=== PATIENT | female | born 1985 | race Caucasian/White ===

== ENCOUNTER 2021-06-18 18:26 | Emergency (ER) | payer BC, SELFPAY ==
[2021-06-18 18:30] VITALS: BP 127/88; PULSE 89; RESP 14; TEMP 36.2; O2SAT 99
--- NOTE | 2021-06-18 20:29 | ED.GENADULT ---
HPI - General Adult General Chief complaint: Unspecified Stated complaint: SINUS PRESSURE AND WOUND ON BUTTOCKS Time Seen by Provider: 06/18/21 20:10 Source: patient Mode of arrival: ambulatory Limitations: no limitations History of Present Illness HPI narrative: This is a 36 year old female that presents to the ER for a wound on her buttock noted over the last couple of days. Reports last night the area started draining. Also reports that she has had sinus pain and pressure over the last week. Associated with congestion and cough. She is Covid vaccinated. Denies fevers. Review of Systems Review of Systems: CONSTITUTIONAL: Denies fever ENT: Reports rhinorrhea, congestion RESPIRATORY: Reports cough. Denies dyspnea. SKIN: Reports abscess All systems reviewed & are unremarkable except as noted in HPI and below PMFSH Past Medical History Medical History (Updated 06/18/21 @ 21:55 by Selma Rodriguez PA-C) History of gastroesophageal reflux (GERD) Social History Social History (Updated 06/18/21 @ 20:32 by Selma Rodriguez PA-C) Smoking status: Never smoker Exam Narrative: GENERAL: Well-appearing, obese, and in no acute distress. HEAD: Normocephalic, atraumatic. EYES: EOMI. ENT: Nares clear, no rhinorrhea or epistaxis. Mucous membranes moist. Oropharynx without tonsillar hypertrophy exudate or other lesions. Bilateral TMs pearly nunez non-bulging. Maxillary sinus tenderness NECK: Supple. No adenopathy or masses. CHEST: Clear to auscultation. No respiratory distress. No wheezes rales or rhonchi HEART: Regular rate and rhythm. No murmur heard. Normal peripheral pulses. BACK: 3cm area of erythema and edema with central fluctuance. Pus is expressible EXTREMITIES: Normal range of motion. No edema. SKIN: Warm, dry, no rash. NEURO: No focal deficits. Alert and oriented x3. PSYCH: Normal mood and affect Course Vital Signs Vital signs: Vital Signs Temperature 97.1 F L 06/18/21 18:30 Pulse Rate 89 06/18/21 18:30 Respiratory Rate 14 06/18/21 18:30 Blood Pressure 127/88 06/18/21 18:30 Pulse Oximetry 99 06/18/21 18:30 Temperature 97.1 F L 06/18/21 18:30 Pulse Rate 89 06/18/21 18:30 Respiratory Rate 14 06/18/21 18:30 Blood Pressure 127/88 06/18/21 18:30 Pulse Oximetry 99 06/18/21 18:30 Procedures Abscess I/D other: Date of Incision: 06/18/21 Time of Incision: 21:44 Local Anesthetic: lidocaine 1% and with epi Amount of anesthesia used (mL): 3 Technique: incised with #11 blade Irrigation: Yes Packing used?: iodoform I&D Results: Pus and Blood Abcess I&D Additional Comments: Pilonidal abscess drained Medical Decision Making MDM Narrative Medical decision making narrative: Patient presents to the ER for pilonidal abscess. She is afebrile and nontoxic appearing. Abscess was drained by myself. Patient will be started on oral antibiotics. Patient also complaining of sinus congestion and pain. Lungs are clear on exam. She was instructed on continued care of sinusitis. She is to follow up with her PCP. She was given warnings to return to the ER. Vital Signs Vital Signs: Vital Signs Temperature 97.1 F L 06/18/21 18:30 Pulse Rate 89 06/18/21 18:30 Respiratory Rate 14 06/18/21 18:30 Blood Pressure 127/88 06/18/21 18:30 Pulse Oximetry 99 06/18/21 18:30 Temperature 97.1 F L 06/18/21 18:30 Pulse Rate 89 06/18/21 18:30 Respiratory Rate 14 06/18/21 18:30 Blood Pressure 127/88 06/18/21 18:30 Pulse Oximetry 99 06/18/21 18:30 Critical Care Time Critical Care Time Critical Care Time: No Discharge Plan Discharge Clinical Impression: Pilonidal abscess Sinusitis Qualifiers: Sinusitis location: maxillary Chronicity: acute Recurrence: non-recurrent Qualified Code(s): J01.00 - Acute maxillary sinusitis, unspecified Patient Disposition: Home, Self-Care Condition: Stable Instructions: Antibiot
[2021-06-18] MEDS: metroNIDAZOLE 250 MG TABLET 500 MG PO (22:25)
[2021-06-18] MEDS: CEPHALEXIN 500 MG CAPSULE PO (22:25)
[2021-06-18 22:30] VITALS: BP 120/84; PULSE 82; RESP 16; O2SAT 99
== END 2021-06-18 22:30 | disposition home or self-care (01) ==
PROVIDERS: Emergency Provider Emergency Medicine; PCP Family Medicine
DX: L05.01 Pilonidal cyst with abscess (principal); J01.00 Acute maxillary sinusitis, unspecified; K21.9 Gastro-esophageal reflux disease without esophagitis
CPT/HCPCS: 10061; 10080; 87070; 87077; 87205; 99283; A9270

== ENCOUNTER 2021-11-01 00:13 | Emergency (ER) | payer BC, SELFPAY ==
--- NOTE | ~2021-11-01 | XR_ITS ---
EXAMINATION: XR wrist LT min 3V DATE: 11/01/2021 00:55 INDICATION: Left wrist pain. TECHNIQUE: 4 views of left wrist were obtained. COMPARISON: None. FINDINGS: Bone alignment is normal. No fracture. Joint spaces are well maintained. IMPRESSION: 1. Normal left wrist. Reviewed, dictated and finalized at location A. CAL COORDINATOR PESTICIDE USE IMPRESSION: 1. Normal left wrist.
[2021-11-01 00:18] VITALS: BP 133/87; PULSE 100; RESP 20; TEMP 36.7; O2SAT 100
[2021-11-01 00:28] VITALS: O2SAT 99
[2021-11-01] MEDS: SODIUM CHLORIDE 0.9% IV 1,000 ML 999 ML IV CONT (00:45)
[2021-11-01 01:00] VITALS: BP 131/77; PULSE 77; RESP 20; O2SAT 100
[2021-11-01] MEDS: BENZOCAINE/MENTHOL (*BKC) 18 EA LOZENGE 1 LOZENGE PO (01:48)
--- NOTE | 2021-11-01 01:50 | ED.GENADULT ---
HPI - General Adult General Chief complaint: Upper Respiratory Infection Stated complaint: URI x5 days, L wrist pain Time Seen by Provider: 11/01/21 00:21 History of Present Illness HPI narrative: Patient is a 36-year-old female who presents ER with issues with URI and wrist pain. Patient reports she was diagnosed with COVID last month and recovered. After her recovery she had redevelopment of sinus congestion. Ongoing last 5 days. No improvement with Mucinex DM. She took a Sudafed this evening. Denies fevers or chills or sweats. Endorses sore throat. No productive cough. No dyspnea. She also reports that she has had wrist pain over the last week. She thinks she may have fell and injured her wrist but cannot remember. She has been wearing wrist splints at home but when she takes it off she has pain. Has not been taking pain medication. No numbness or tingling. Pain is over the dorsal aspect of the middle of the wrist. Related Data Allergies Allergy/AdvReac Type Severity Reaction Status Date / Time Sulfa (Sulfonamide Allergy Rash Verified 06/18/21 22:25 Antibiotics) Review of Systems Review of Systems: All systems reviewed & are unremarkable except as noted in HPI and below Constitutional: Constitutional: Denies chills, Denies fever(s) and Denies weakness ENT: Reports nasal congestion and Reports sore throat Cardiovascular: Cardiovascular: Denies chest pain, Denies rapid heart rate and Denies radiating jaw, neck or arm pain Respiratory: Respiratory: Reports cough, Denies dyspnea and Denies wheezing Musculoskeletal: Musculoskeletal: Reports arthralgias and Denies joint swelling Neurologic: Denies focal weakness and Denies numbness PMFSH Past Medical History Medical History (Updated 11/01/21 @ 02:27 by Ciro Davenport MD) History of gastroesophageal reflux (GERD) Surgical History Surgical History (Updated 11/01/21 @ 02:27 by Ciro Davenport MD) No pertinent past surgical history Social History Social History (Updated 06/18/21 @ 20:32 by Selma Rodriguez PA-C) Smoking status: Never smoker Exam Narrative: GENERAL: Well-appearing, well-nourished, and in no acute distress. HEAD: Normocephalic, atraumatic. ENT: Mucous membranes moist. No tonsillar hypertrophy or exudate. Uvula midline nonedematous. Normal-appearing posterior oropharynx NECK: Supple. CHEST: Clear to auscultation. No respiratory distress. HEART: Regular rate and rhythm. Normal peripheral pulses EXTREMITIES: Normal range of motion. No edema. Mild tenderness dorsum of the left wrist without swelling or redness. Sensation intact in the left hand. NEURO: No focal deficits. Alert and oriented x3. Course Course Emergency Course: Patient hydrated as she felt she was dry from feeling unwell. Imaging without evidence of acute fracture. Discharge home. Vital Signs Vital signs: Vital Signs Temperature 98.0 F 11/01/21 00:18 Pulse Rate 100 11/01/21 00:18 Respiratory Rate 20 11/01/21 00:18 Blood Pressure 133/87 11/01/21 00:18 Pulse Oximetry 100 11/01/21 00:18 Temperature 98.0 F 11/01/21 00:18 Pulse Rate 77 11/01/21 01:00 Respiratory Rate 20 11/01/21 01:00 Blood Pressure 131/77 11/01/21 01:00 Pulse Oximetry 100 11/01/21 01:00 Medical Decision Making Vital Signs Vital Signs: Vital Signs Temperature 98.0 F 11/01/21 00:18 Pulse Rate 100 11/01/21 00:18 Respiratory Rate 20 11/01/21 00:18 Blood Pressure 133/87 11/01/21 00:18 Pulse Oximetry 100 11/01/21 00:18 Temperature 98.0 F 11/01/21 00:18 Pulse Rate 77 11/01/21 01:00 Respiratory Rate 20 11/01/21 01:00 Blood Pressure 131/77 11/01/21 01:00 Pulse Oximetry 100 11/01/21 01:00 Imaging Data My impression: X-ray left wrist: No acute osseous abnormality. Discharge Plan Discharge Clinical Impression: Upper respiratory infection, Pain in wrist Patient Disposition: Home, Self-Care Conditio
== END 2021-11-01 02:20 | disposition home or self-care (01) ==
PROVIDERS: Emergency Provider Emergency Medicine; PCP Family Medicine
DX: J06.9 Acute upper respiratory infection, unspecified (principal); M25.532 Pain in left wrist; Z86.16 Personal history of COVID-19; K21.9 Gastro-esophageal reflux disease without esophagitis
CPT/HCPCS: 73110; 96360; 99283; A9270; J7030

== ENCOUNTER 2022-11-09 00:03 | Emergency (ER) | payer BC, SELFPAY ==
--- NOTE | ~2022-11-09 | CT_ITS ---
Non-contrast CT scan of the Abdomen and Pelvis Clinical indication: Flank pain Technique: 5 mm axial scans were obtained through the abdomen and pelvis without intravenous or oral contrast. Dose reduction technique was used on this scan by utilizing automated exposure control and iterative reconstruction technique. The dose-length product (DLP) was 1340.66 mGy-cm. Findings: Images through the lung bases reveal no abnormalities. Punctate nonobstructing bilateral renal stones are present. No ureteral stone or hydronephrosis. The liver, spleen, pancreas, gallbladder, and adrenals appear normal. There is no aortic aneurysm. There is no evidence of bowel obstruction. Normal appendix. Images through the pelvis were performed. There is no evidence of ascites or lymphadenopathy. Urinary bladder unremarkable. No adnexal mass evident. Impression: Punctate bilateral nonobstructing renal stones. No other significant findings. Reviewed, dictated and finalized at [facility]. TABLE TESTER Impression: Punctate bilateral nonobstructing renal stones. No other significant findings.
[2022-11-09 00:09] VITALS: BP 136/88; PULSE 96; RESP 14; TEMP 37.1; O2SAT 98
[2022-11-09 00:38] VITALS: BP 119/82; PULSE 89; O2SAT 98
[2022-11-09 00:49] LABS: Basophils Percent Auto 0.2 % (0.2-1.2); Eosinophils Absolute Auto 0.5 K/mm3 (0-0.3); Eosinophils Percent Auto 5.8 % (0-4.4); Hematocrit 41.8 % (37.0-47.0); Hemoglobin 13.5 g/dL (12.0-15.0); Immature Granulocyte Absolute 0.03 K/mm3 (0.00-0.031); Immature Granulocyte Percent A 0.4 % (0-0.5); Lymphocytes Absolute Auto 2.63 K/mm3 (0.9-3.2); Lymphocytes Percent Auto 31.2 % (18.3-44.2); Mean Corpuscular HGB Conc 32.3 g/dl (32-36); Mean Corpuscular Hemoglobin 29.3 pg (26-34); Mean Corpuscular Volume 90.9 fl (80-100); Mean Platelet Volume 10.1 fl (7.4-10.4); Monocytes Absolute Auto 0.6 K/mm3 (0.1-0.6); Monocytes Percent Auto 6.8 % (2.6-8.5); Neutrophils Absolute Auto 4.7 K/mm3 (1.3-6.7); Neutrophils Percent Auto 55.6 % (45.5-73.1); Platelet Count Result 277 k/mm3 (150-375); Red Cell Distribution Width 13.3 % (11.5-14.5); White Blood Count 8.4 K/mm3 (4.5-10.0)
--- NOTE | 2022-11-09 00:50 | PC.NURSE ---
Pt reports suprapubic and low back pain that started 3 days ago. +Nausea and diarrhea. Denies vomiting or blood in her stools. She also denies pain or burning with urination. Abdomen is soft. Bowel sounds heard throughout. Last BM was yesterday and normal per pt.
[2022-11-09 00:52] LABS: Appearance Urine Slightly Cloudy (Clear); Bilirubin Urine Negative (Negative); Blood Urine Negative (Negative); Color Urine Yellow (Yellow); Glucose Urine UA Negative (Negative); Ketones Urine Trace mg/dL (Negative); Leukocyte Esterase Ur Trace LEU/UL (Negative); Nitrate Urine Negative (Negative); Protein Urine Negative (Negative); Specific Grav Ur >= 1.030 (1.001-1.035); Urobilinogen Urine 0.2 mg/dL (<2.0); pH Urine 5.5 (5.0-9.0)
[2022-11-09 01:00] LABS: Alanine Aminotransferase 26 U/L (6-35); Albumin Level 4.1 g/dL (3.5-5.1); Alkaline Phosphatase 103 U/L (38-126); Anion Gap 7 mmol/L (8-16); Aspartate Amino Transferase 26 U/L (14-36); Bilirubin,Total 0.3 mg/dL (0.2-1.3); Blood Urea Nitrogen 15 mg/dL (7-17); Calcium 8.5 mg/dL (8.4-10.2); Carbon Dioxide 25 mmol/L (22-30); Chloride 108 mmol/L (98-107); Estimated CRCL calculation 114 ml/min; Estimated Glomerular Filt Rate > 60; Glucose 163 mg/dL (65-110); Lipase 23 U/L (23-300); Potassium 4.1 mmol/L (3.4-5.0); Sodium 140 mmol/L (137-145)
[2022-11-09 01:00] LABS: Bacteria Urine Trace /hpf; Mucus Urine Rare /lpf; Squamous Epithelial Cell Urine Many /hpf (Few); WBC Urine 16-20 /hpf
[2022-11-09 01:01] VITALS: BP 119/80; PULSE 91; RESP 20; O2SAT 97
[2022-11-09 01:08] LABS: Add Urine Microscopic? YES
--- NOTE | 2022-11-09 01:17 | ED.GENADULT ---
HPI - General Adult General Chief complaint: Abdominal Pain Stated complaint: low back pain, abd pain Time Seen by Provider: 11/09/22 00:49 History of Present Illness HPI narrative: Patient is a [id number] female who presents the emergency department with chief complaint of right flank pain. The patient reports that she started having pain in the bilateral flanks. The patient reports that pain radiates to the lower quadrants reports that its not improved by anything patient reports no nausea no vomiting patient reports no trauma Related Data Allergies Allergy/AdvReac Type Severity Reaction Status Date / Time Sulfa (Sulfonamide Allergy Rash Verified 11/09/22 00:11 Antibiotics) Review of Systems Review of Systems: A 10 system review of systems was completed on the patient and is negative except for what is stated in the HPI. Nursing and ancillary documentation was reviewed. PMFSH Past Medical History Medical History History of gastroesophageal reflux (GERD) Surgical History Surgical History No pertinent past surgical history Social History Social History Smoking status: Never smoker Exam Narrative: GENERAL: Well-appearing, well-nourished, and in no acute distress. HEAD: Normocephalic, atraumatic. EYES: PERRLA and EOMI. ENT: Nares clear, no rhinorrhea or epistaxis. Mucous membranes moist. NECK: Supple. CHEST: Clear to auscultation. No respiratory distress. HEART: Regular rate and rhythm. No murmur heard. Normal peripheral pulses. ABDOMEN: Soft, nontender, nondistended, normal active bowel sounds. EXTREMITIES: Normal range of motion. No edema. SKIN: Warm, dry, no rash. NEURO: No focal deficits. Alert and oriented x3. PSYCH: Normal mood and affect. Course Vital Signs Vital signs: Vital Signs Temperature 37.1 C 11/09/22 00:09 Pulse Rate 96 11/09/22 00:09 Respiratory Rate 14 11/09/22 00:09 Blood Pressure 136/88 11/09/22 00:09 Pulse Oximetry 98 11/09/22 00:09 Oxygen Delivery Room Air 11/09/22 00:09 Temperature 37.1 C 11/09/22 00:09 Pulse Rate 92 11/09/22 02:24 Respiratory Rate 18 11/09/22 02:24 Blood Pressure 115/70 11/09/22 02:24 Pulse Oximetry 97 11/09/22 02:24 Oxygen Delivery Room Air 11/09/22 00:09 Medical Decision Making MDM Narrative Medical decision making narrative: Differential diagnosis includes UTI, pyelonephritis, ureterolithiasis, diverticulitis, colitis, Laboratory studies were obtained which showed a normal white blood cell count electrolytes were within normal limits creatinine was 0.7 urinalysis showed 16-20 white blood cells and positive for leukocyte Estrace. CT scan of the abdomen pelvis showed no evidence of obstructing stone and no other acute finding Given this consistent with UTI and possible early pyelonephritis. Patient be given a dose of Rocephin in the emergency department and the patient will be discharged home on oral antibiotics. Vital Signs Vital Signs: Vital Signs Temperature 37.1 C 11/09/22 00:09 Pulse Rate 96 11/09/22 00:09 Respiratory Rate 14 11/09/22 00:09 Blood Pressure 136/88 11/09/22 00:09 Pulse Oximetry 98 11/09/22 00:09 Oxygen Delivery Room Air 11/09/22 00:09 Temperature 37.1 C 11/09/22 00:09 Pulse Rate 92 11/09/22 02:24 Respiratory Rate 18 11/09/22 02:24 Blood Pressure 115/70 11/09/22 02:24 Pulse Oximetry 97 11/09/22 02:24 Oxygen Delivery Room Air 11/09/22 00:09 Lab Data 11/09/22 00:37 11/09/22 00:37 Labs: Lab Results 11/09/22 11/09/22 11/09/22 Range/Units 00:37 00:37 00:38 WBC 8.4 (4.5-10.0) K/mm3 RBC 4.60 (4.2-5.4) M/mm3 Hgb 13.5 (12.0-15.0) g/dL Hct 41.8 (37.0-47.0) % MCV 90.9 (80-100) fl MCH 29.3
[2022-11-09] MEDS: MORPHINE SULFATE (*CRX) 4 MG/ML INJ IV PUSH (02:14)
[2022-11-09] MEDS: ONDANSETRON INJ 4 MG/2 ML VIAL IV PUSH (02:14)
[2022-11-09] MEDS: SODIUM CHLORIDE 0.9% IV 1,000 ML 999 ML IV CONT (02:17)
[2022-11-09 02:24] VITALS: BP 115/70; PULSE 92; RESP 18; O2SAT 97
[2022-11-09 03:57] VITALS: BP 118/78; PULSE 85; RESP 18; O2SAT 98
== END 2022-11-09 04:05 | disposition home or self-care (01) ==
PROVIDERS: Emergency Provider Emergency Medicine; PCP Family Medicine
DX: N12 Tubulo-interstitial nephritis, not specified as acute or chronic (principal); N39.0 Urinary tract infection, site not specified; R10.9 Unspecified abdominal pain; K21.9 Gastro-esophageal reflux disease without esophagitis
CPT/HCPCS: 36415; 74176; 80053; 81001; 81025; 83690; 85025; 87086; 87147; 87181; 87186; 96361; 96374; 96375; 99284; J0696; J2270; J2405; J7030

== ENCOUNTER → 2023-01-27 14:11 | Outpatient (CLI) | payer BC, SELFPAY ==
--- NOTE | ~2023-01-27 | CT_ITS ---
EXAMINATION: CT abdomen pelvis wo con DATE: 01/27/2023 14:27 INDICATION: Lower urinary tract symptoms. Recent urinary tract infections. TECHNIQUE: Computed tomography (CT) of the abdomen and pelvis was performed without intravenous contr ast. Automated exposure control and iterative reconstruction technique were employed. The dose-length product was 1050.59 mGy-cm. COMPARISON: CT abdomen and pelvis 11/09/2022 FINDINGS: The visualized portions of the lung bases are clear without pneumonia or pleural effusion. The heart size is normal. No pericardial effusion. The liver, gallbladder, spleen, pancreas, and adre nal glands are normal. There is a 9 mm cyst in right kidney. There is a 1 mm stone in left kidney. Th ere are no dilated loops of bowel. The appendix is normal. There are no pathologically enlarged lymph nodes. There is no free intraperitoneal fluid. There is a supraumbilical ventral hernia containing f at. There is mild thoracic and lumbar spondylosis. IMPRESSION: 1. 1 mm nonobstructing left kidney stone. 2. Supraumbilical ventral hernia containing fat. Reviewed, dictated and finalized at location E.
== END ==
PROVIDERS: PCP Family Medicine; Visit Provider Urology
DX: R39.9 Unspecified symptoms and signs involving the genitourinary system (principal); N20.0 Calculus of kidney; K43.9 Ventral hernia without obstruction or gangrene
CPT/HCPCS: 74176

== ENCOUNTER → 2023-04-12 13:33 | Outpatient (CLI) | payer BC, SELFPAY ==
--- NOTE | ~2023-04-12 | MR_ITS ---
EXAMINATION: MR wrist LT wo con DATE: 04/12/2023 14:44 INDICATION: Left wrist pain and limited range of motion post lifting injury. Tear of the left scaphol unate ligament. TECHNIQUE: Magnetic resonance imaging (MRI) of the left wrist was performed without intravenous contr ast. Sequences performed include axial PD-weighted FSE, axial PD-weighted FS FSE, axial PD-weighted P ROPELLER FS FSE, coronal PD-weighted PROPELLER FS FSE, coronal PROPELLER T1-weighted SE, coronal T1-w eighted FSE, sagittal PD-weighted PROPELLER FS FSE, sagittal PD-weighted FSE and sagittal PD-weighted FS FSE. COMPARISON: None FINDINGS: Study is moderately limited due to motion artifact or blurring on multiple sequences despite repeat i maging with motion suppression techniques. Intrinsic ligaments: The scapholunate and lunotriquetral ligaments are normal. Triangular fibrocartilage complex (TFCC): The triangular fibrocartilage including its foveal and styloid attachments as well as the dorsal and volar radioulnar ligaments are normal. Extensor wrist: There is a tear of the ulnar side of the extensor carpi ulnaris sub sheath with subluxation of the no rmal-appearing extensor carpi ulnaris tendon across the ulnar rim of the ECU groove and across the ti p of the ulnar styloid process. Extensor tendons of the wrist are otherwise normal. No tenosynovitis. Flexor wrist: The flexor tendons of the wrist are normal. No abnormality in the carpal tunnel with normal median n erve. Guyon's canal: Guyon's canal including the ulnar nerve and artery are normal. Bones/other: Normal marrow signal. No fracture, erosions, avascular necrosis or abnormal marrow replacing process. Joint spaces are normal with no focal cartilage defects appreciated. There is a multilobulated gang lion cyst extending between the volar aspect of the distal radius and the more superficial flexor ten dons. The cyst measures approximately 1.9 cm medial collateral and 6 x 6 mm in maximal orthogonal dim ensions. The neck appears to originate at the volar side of the radioscaphoid articulation of the wri st joint. IMPRESSION: 1. Evaluation moderately limited by motion artifact on multiple sequences including additional sequen martin added with motion suppression technique. 2. 1.9 x 0.6 x 0.6 cm ganglion cyst along the volar aspect of the distal radius. 3. Tear of the ulnar side of the extensor carpi ulnaris sub sheath allowing subluxation of the otherw ise normal extensor carpi ulnaris tendon across the ulnar side of the rim of the ECU groove and tip o f the ulnar styloid process. Reviewed, dictated and finalized at location A. IMPRESSION: 1. Evaluation moderately limited by motion artifact on multiple sequences inclu ding additional sequences added with motion suppression technique. 2. 1.9 x 0.6 x 0.6 cm ganglion cyst along the volar aspect of the distal radius . 3. Tear of the ulnar side of the extensor carpi ulnaris sub sheath allowing sub luxation of the otherwise normal extensor carpi ulnaris tendon across the ulnar side of the rim of the ECU groove and tip of the ulnar styloid process.
== END ==
PROVIDERS: PCP Family Medicine
DX: S63.8X2A Sprain of other part of left wrist and hand, initial encounter (principal); X58.XXXA Exposure to other specified factors, initial encounter
CPT/HCPCS: 73221

== ENCOUNTER 2023-06-05 08:31 | Emergency (ER) | payer BC, SELFPAY ==
--- NOTE | ~2023-06-05 | CT_ITS ---
EXAMINATION: CT abdomen pelvis w con DATE: 06/05/2023 09:38 INDICATION: Left lower quadrant abdominal pain and left flank pain. TECHNIQUE: Computed tomography (CT) of the abdomen and pelvis was performed with 100 mL Omnipaque-350 intravenous contrast. Automated exposure control and iterative reconstruction technique were employe d. The dose-length product was 1182.05 mGy-cm. COMPARISON: 01/27/2023 FINDINGS: Mild dependent atelectasis in the left lower lobe. Heart size is normal. No pericardial or pleural ef fusion. Focal hepatic steatosis at the ligamentum teres. Gallbladder, spleen, pancreas and bilateral adrenal glands are normal. 1 cm cyst at the lower pole of the right kidney. Unchanged 1 mm nonobstruc ting stone inferior calyx of the left kidney. No evident ureteral stones or hydronephrosis. There are few small regions of decreased cortical enhancement at the left kidney and could not exclude early p yelonephritis although there is no inflammatory stranding at the left kidney to more specifically sug gest this. Bowels including the appendix are normal. Bladder is normal. Anteverted uterus and bilater al adnexa are unremarkable. Minimal likely physiologic free fluid in the cul-de-sac. No abscess or fr ee intraperitoneal gas. No pathologically enlarged abdominal or pelvic lymphadenopathy. Small fat-con taining supraumbilical ventral hernia. Chronic mild likely physiologic anterior wedging at T11 and T1 2. Mild thoracic and lumbar spondylosis. IMPRESSION: 1. Unchanged 1 mm nonobstructing left renal stone. 2. A few streaky regions of subtle decreased cortical enhancement at the left kidney and could not ex clude early pyelonephritis although there is no associated inflammatory stranding to more specificall y suggest this. Correlate with urinalysis. 3. Small fat-containing ventral hernia. Reviewed, dictated and finalized at location A. IMPRESSION: 1. Unchanged 1 mm nonobstructing left renal stone. 2. A few streaky regions of subtle decreased cortical enhancement at the left k idney and could not exclude early pyelonephritis although there is no associate d inflammatory stranding to more specifically suggest this. Correlate with urin alysis. 3. Small fat-containing ventral hernia.
[2023-06-05 08:37] VITALS: BP 114/78; PULSE 104; RESP 20; TEMP 36.4; O2SAT 98
[2023-06-05 08:59] LABS: Basophils Percent Auto 0.4 % (0.2-1.2); Eosinophils Absolute Auto 0.1 K/mm3 (0-0.3); Eosinophils Percent Auto 0.7 % (0-4.4); Hematocrit 41.3 % (37.0-47.0); Hemoglobin 13.4 g/dL (12.0-15.0); Immature Granulocyte Absolute 0.02 K/mm3 (0.00-0.031); Immature Granulocyte Percent A 0.2 % (0-0.5); Lymphocytes Absolute Auto 1.84 K/mm3 (0.9-3.2); Mean Corpuscular HGB Conc 32.4 g/dl (32-36); Mean Corpuscular Hemoglobin 29.3 pg (26-34); Mean Corpuscular Volume 90.4 fl (80-100); Mean Platelet Volume 9.8 fl (7.4-10.4); Monocytes Absolute Auto 0.8 K/mm3 (0.1-0.6); Monocytes Percent Auto 10.1 % (2.6-8.5); Neutrophils Absolute Auto 5.6 K/mm3 (1.3-6.7); Neutrophils Percent Auto 66.6 % (45.5-73.1); Platelet Count Result 232 k/mm3 (150-375); Red Blood Count 4.57 M/mm3 (4.2-5.4); Red Cell Distribution Width 12.7 % (11.5-14.5); White Blood Count 8.4 K/mm3 (4.5-10.0)
[2023-06-05 09:08] LABS: Appearance Urine Cloudy (Clear); Bacteria Urine 2+ /hpf; Bilirubin Urine Negative (Negative); Blood Urine Negative (Negative); Color Urine Dark Yellow (Yellow); Glucose Urine UA Negative (Negative); Ketones Urine Trace mg/dL (Negative); Leukocyte Esterase Ur 2+ LEU/UL (Negative); Nitrate Urine Negative (Negative); Non Pathogenic Casts 0-2; Protein Urine Negative (Negative); Specific Grav Ur 1.026 (1.001-1.035); Squamous Epithelial Cell Urine Moderate /hpf (Few); Urobilinogen Urine 0.2 mg/dL (<2.0); WBC Urine 21-50 /hpf; pH Urine 5.5 (5.0-9.0)
[2023-06-05 09:11] LABS: Add Urine Microscopic? YES
[2023-06-05 09:11] LABS: Alanine Aminotransferase 23 U/L (6-35); Albumin Level 3.9 g/dL (3.5-5.1); Alkaline Phosphatase 65 U/L (38-126); Anion Gap 4 mmol/L (8-16); Aspartate Amino Transferase 31 U/L (14-36); Bilirubin,Total 0.7 mg/dL (0.2-1.3); Blood Urea Nitrogen 11 mg/dL (7-17); Calcium 8.5 mg/dL (8.4-10.2); Carbon Dioxide 28 mmol/L (22-30); Chloride 103 mmol/L (98-107); Estimated CRCL calculation 96 ml/min; Estimated Glomerular Filt Rate > 60; Glucose 117 mg/dL (65-110); Lipase 16 U/L (23-300); Potassium 3.7 mmol/L (3.4-5.0); Sodium 135 mmol/L (137-145)
--- NOTE | 2023-06-05 09:12 | ED.NAVMDI ---
HPI - Nausea/Vomiting/Diarrhea General Chief complaint: Nausea/Vomiting/Diarrhea Stated complaint: Vomiting Time Seen by Provider: 06/05/23 09:01 History of Present Illness HPI Narrative: 38-year-old female reports for evaluation for nausea, vomiting, diarrhea and left lower quadrant abdominal pain that radiates to her left flank x1 day. Patient states she had Macanese food 2 nights ago and woke up the next day with n/v/d. She reports approximately 3 episodes of emesis since the onset of symptoms and 5 episodes of nonbloody diarrhea. She reports her temperature at home has been 99 degrees. She is also reporting right ear pain that started yesterday and a sore throat that is worse with swallowing. She reports congestion and a cough which she attributes to allergies, states it is unchanged from her baseline. She denies dysuria or hematuria, chest pain or shortness of breath. She sees a urologist for recurrent pyelonephritis. Related Data Allergies Allergy/AdvReac Type Severity Reaction Status Date / Time Sulfa (Sulfonamide Allergy Rash Verified 06/05/23 08:43 Antibiotics) Review of Systems Review of Systems: CONSTITUTIONAL: Denies fever, chills EYES: Denies visual changes, redness, or discharge. ENT: See HPI CARDIOVASCULAR: Denies chest pain, palpitations, or edema. RESPIRATORY: Denies cough or dyspnea. GASTROINTESTINAL: See HPI GENITOURINARY: Denies dysuria or hematuria. SKIN: Denies rash or itching. MUSCULOSKELETAL: See HPI NEUROLOGIC: Denies headache, numbness, dizziness, or weakness. PSYCHIATRIC: Denies anxiety or depression. [facility] Past Medical History Medical History History of gastroesophageal reflux (GERD) Surgical History Surgical History No pertinent past surgical history Social History Social History Smoking status: Never smoker Exam Narrative: GENERAL: Well-appearing, in no acute distress. Patient resting comfortably in exam bed. She is pleasant and conversational. HEAD: Normocephalic EYES: PERRLA ENT: Nares clear. Mucous membranes moist. Uvula midline. Bilateral tonsils with cobblestoning and edema. No airway compromise. Left TM is nunez nonbulging, normal canal. Right TM is erythematous and bulging. Normal canal. No tenderness to bilateral mastoids. No pain with movement of auricles. NECK: Supple. CHEST: No respiratory distress. Clear to auscultation, no adventitious breath sounds. HEART: Regular rate and rhythm. No murmur heard. Normal peripheral pulses. ABDOMEN: Normal active bowel sounds. Abdomen soft with tenderness in the left lower quadrant and right lower quadrant. No overlying skin changes. No guarding, rebound or rigidity. No CVA tenderness. EXTREMITIES: Normal range of motion. No edema. SKIN: Warm, dry, no rash. NEURO: No focal deficits. Alert and oriented x3. PSYCH: Normal mood and affect. Course Vital Signs Vital signs: Vital Signs Temperature 97.6 F 06/05/23 08:37 Pulse Rate 104 H 06/05/23 08:37 Respiratory Rate 20 06/05/23 08:37 Blood Pressure 114/78 06/05/23 08:37 Pulse Oximetry 98 06/05/23 08:37 Oxygen Delivery Room Air 06/05/23 08:37 Temperature 97.6 F 06/05/23 08:37 Pulse Rate 87 06/05/23 09:24 Respiratory Rate 20 06/05/23 09:24 Blood Pressure 115/72 06/05/23 09:24 Pulse Oximetry 100 06/05/23 09:24 Oxygen Delivery Room Air 06/05/23 08:37 MDM - Nausea/Vomiting/Diarrhea MDM Narrative Medical decision making narrative: 38-year-old female reports for evaluation for n/v/d, abdominal pain, otalgia and sore throat. Patient is nontoxic-appearing. Exam significant for AOM, LLQ and RLQ abd tenderness. Vitals significant for tachycardia 104 which has since resolved, otherwise unremarkable. CBC and chemistries unremarkable. Urinalysis
[2023-06-05] MEDS: SODIUM CHLORIDE 0.9% IV 1,000 ML 999 ML IV CONT (09:21)
[2023-06-05] MEDS: ONDANSETRON INJ 4 MG/2 ML VIAL IV PUSH (09:21)
[2023-06-05 09:24] VITALS: BP 115/72; PULSE 87; RESP 20; O2SAT 100
[2023-06-05 09:53] LABS: Strep Group A RT-PCR NOT DETECTED (Negative)
[2023-06-05 10:03] LABS: Influenza A QL RT-PCR Negative (Negative); Influenza B QL RT-PCR Negative (Negative); SARS-CoV-2 RNA PCR Negative (Negative)
[2023-06-05] MEDS: KETOROLAC 30 MG/ML VIAL (*BKC) IV PUSH (10:37)
[2023-06-05 11:24] VITALS: BP 119/76; PULSE 84; RESP 18; O2SAT 100
== END 2023-06-05 11:25 | disposition home or self-care (01) ==
PROVIDERS: Preventive Medicine Aerospace Medicine; Emergency Provider Physician Assistant; PCP Family Medicine
DX: N12 Tubulo-interstitial nephritis, not specified as acute or chronic (principal); H66.001 Acute suppurative otitis media without spontaneous rupture of ear drum, right ear; Z20.822 Contact with and (suspected) exposure to COVID-19; K21.9 Gastro-esophageal reflux disease without esophagitis
CPT/HCPCS: 36415; 74177; 80053; 81001; 81025; 83690; 85025; 87086; 87088; 87636; 87651; 96361; 96365; 96375; 99284; J0696; J1885; J2405; J7030; Q9967

== ENCOUNTER 2023-07-04 20:30 | Emergency (ER) | payer BC, SELFPAY ==
--- NOTE | ~2023-07-04 | XR_ITS ---
EXAMINATION: XR chest 2V DATE: 07/04/2023 21:25 INDICATION: Cough. TECHNIQUE: Frontal and lateral views of the chest were obtained. COMPARISON: CT abdomen and pelvis 06/05/2023 FINDINGS: There is mild atelectasis in right lower lung zone. No pleural effusion or pneumothorax. Th e heart size is normal. IMPRESSION: 1. Mild atelectasis in right lower lung zone. Reviewed, dictated and finalized at location E.
[2023-07-04 20:41] VITALS: BP 135/68; PULSE 91; RESP 20; TEMP 37.1; O2SAT 98
[2023-07-04 22:07] LABS: Appearance Urine Cloudy (Clear); Bacteria Urine None Seen /hpf; Bilirubin Urine Negative (Negative); Blood Urine Negative (Negative); Calcium Oxalate Crystals Urine Present /hpf; Color Urine Yellow (Yellow); Glucose Urine UA Negative (Negative); Ketones Urine Negative (Negative); Leukocyte Esterase Ur Negative LEU/UL (Negative); Need Manual Microscopic Reviewed; Nitrate Urine Negative (Negative); Non Pathogenic Casts 0-2; Protein Urine Negative (Negative); Specific Grav Ur 1.032 (1.001-1.035); Squamous Epithelial Cell Urine Few /hpf (Few); Urobilinogen Urine 0.2 mg/dL (<2.0)
[2023-07-04 22:09] LABS: Add Urine Microscopic? YES
--- NOTE | 2023-07-04 22:27 | ED.GENADULT ---
[facility] - General Adult General Chief complaint: Upper Respiratory Infection Stated complaint: coughing and SOB x1 week Time Seen by Provider: 07/04/23 21:09 Source: patient Mode of arrival: ambulatory Limitations: no limitations History of Present Illness HPI narrative: This is a 58-year-old female who presents to the ED with chief complaint of shortness of breath and cough for 1 week. Reports that her partner has pneumonia and she wants to be checked for the same. Reports she has had productive cough and occasional chest pain specifically associated with the cough. Also reports she has recent history of UTI and had taken 2 different antibiotics. Reports her urine was still little dark so she wanted this rechecked as well. Denies fevers, chills, nausea, vomiting, flank pain, Related Data Allergies Allergy/AdvReac Type Severity Reaction Status Date / Time Sulfa (Sulfonamide Allergy Rash Verified 07/04/23 20:31 Antibiotics) Review of Systems Review of Systems: All systems as dictated in [facility] Past Medical History Medical History History of gastroesophageal reflux (GERD) Surgical History Surgical History No pertinent past surgical history Social History Social History Smoking status: Never smoker Exam Narrative: GENERAL: Well-appearing, well-nourished, and in no acute distress. HEAD: Normocephalic, atraumatic. EYES: PERRLA and EOMI. ENT: Nares clear, no rhinorrhea or epistaxis. Mucous membranes moist. Oropharynx without tonsillar hypertrophy exudate or other lesions. NECK: Supple. No adenopathy or masses. CHEST: No respiratory distress. Clear to auscultation. No wheezes rales or rhonchi. HEART: Regular rate and rhythm. No murmur heard. Normal peripheral pulses. ABDOMEN: Soft, nontender, nondistended, normal active bowel sounds. MSK: Normal range of motion. No edema. SKIN: Warm, dry, no rash. NEURO: Alert and oriented x3. No focal deficits. PSYCH: Normal mood and affect. Course Vital Signs Vital signs: Vital Signs Temperature 98.8 F 07/04/23 20:41 Pulse Rate 91 07/04/23 20:41 Respiratory Rate 20 07/04/23 20:41 Blood Pressure 135/68 07/04/23 20:41 Pulse Oximetry 98 07/04/23 20:41 Oxygen Delivery Room Air 07/04/23 20:41 Temperature 98.8 F 07/04/23 20:41 Pulse Rate 91 07/04/23 20:41 Respiratory Rate 20 07/04/23 20:41 Blood Pressure 135/68 07/04/23 20:41 Pulse Oximetry 98 07/04/23 20:41 Oxygen Delivery Room Air 07/04/23 20:59 Medical Decision Making MDM Narrative Medical decision making narrative: This is a 38-year-old female who presents to the ED with 2 complaints. Reports cough and URI symptoms. Also reports being treated recently for UTI and wants to have the urine rechecked. Vitals are normal. Exam is benign. Chest x-ray shows some mild atelectasis but this is consistent with her recent cough. Symptoms are more consistent with viral illness. Low suspicion for pneumonia. Urinalysis shows improving UA. Her previous culture did not show Any UTI bug. Rx for Tessalon Perles given. Pt will be discharged in stable condition. Return precautions given and supportive measures discussed. Pt is understanding and agreeable with plan for discharge and follow-up with PCP. Vital Signs Vital Signs: Vital Signs Temperature 98.8 F 07/04/23 20:41 Pulse Rate 91 07/04/23 20:41 Respiratory Rate 20 07/04/23 20:41 Blood Pressure 135/68 07/04/23 20:41 Pulse Oximetry 98 07/04/23 20:41 Oxygen Delivery Room Air 07/04/23 20:41 Temperature 98.8 F 07/04/23 20:41 Pulse Rate 91 07/04/23 20:41 Respiratory Rate 20 07/04/23 20:41 Blood Pressure 135/68 07/04/23 20:41 Pulse Oximetry 98 07/04/23 20:41 Oxygen Delivery Room Air 07/04/23 20:59
== END 2023-07-04 22:44 | disposition home or self-care (01) ==
PROVIDERS: Emergency Medicine; Emergency Provider Physician Assistant; PCP Family Medicine
DX: J06.9 Acute upper respiratory infection, unspecified (principal); K21.9 Gastro-esophageal reflux disease without esophagitis
CPT/HCPCS: 71046; 81001; 81025; 87086; 99283

== ENCOUNTER → 2023-08-23 13:57 | Outpatient (CLI) | payer BC, SELFPAY ==
--- NOTE | ~2023-08-23 | MR_ITS ---
MRI of the brain Clinical History: Family history of multiple sclerosis Technique: Axial and sagittal T1-weighted images were acquired. These were followed by axial T2-weigh teresa, diffusion weighted, gradient, and FLAIR images. Following intravenous administration of 20 cc Mu ltiHance gadolinium, T1-weighted fat-sat imaging was performed in the axial, coronal, and sagittal pl anes. Findings: There is no abnormal signal in the brain parenchyma. No acute infarct, intracranial hemorrh age, or mass lesion. No evidence of demyelinating disease. Ventricles and subarachnoid spaces are unremarkable. Orbits are unremarkable. Paranasal sinuses and m astoid air cells are clear, aside from mild left ethmoid sinus disease. Major intracranial flow voids are intact. Sagittal midline structures are intact. No abnormal postcontrast enhancement identified. IMPRESSION: Mild left ethmoid sinus disease, otherwise unremarkable exam. Reviewed, dictated and finalized at location . ERY INSPECTOR
== END ==
PROVIDERS: Visit Provider Family Medicine
DX: J32.2 Chronic ethmoidal sinusitis (principal); Z82.0 Family history of epilepsy and other diseases of the nervous system
CPT/HCPCS: 70553; A9577

== ENCOUNTER 2023-11-23 14:21 | Outpatient (CLI) | payer BC, SELFPAY ==
--- NOTE | ~2023-11-23 | CT_ITS ---
EXAMINATION: CT sinus wo con DATE: 11/23/2023 14:34 INDICATION: Chronic sinusitis. TECHNIQUE: Computed tomography (CT) of the paranasal sinuses was performed without intravenous contra st. Iterative reconstruction technique was employed. The dose-length product was 278.24 mGy-cm. COMPARISON: Brain MRI 08/23/2023 FINDINGS: The frontal, ethmoid, sphenoid, and maxillary sinuses are clear. There is rightward deviati on of the nasal septum with a right lateral spur. The ostiomeatal units are patent. There are bilater al Tamika cells. IMPRESSION: 1. Rightward deviation of the nasal septum. Reviewed, dictated and finalized at location E. GRINDER OPERATOR
== END 2023-11-23 14:22 ==
LOC: MICIMG 14:22
PROVIDERS: PCP Family Medicine; Visit Provider Otolaryngology
DX: J32.9 Chronic sinusitis, unspecified (principal); J34.2 Deviated nasal septum
CPT/HCPCS: 70486

== ENCOUNTER 2024-01-12 00:49 | Day surgery (SDC) | payer BC, SELFPAY ==
[2024-01-02 13:51] VITALS: BMI 44.9
--- NOTE | 2024-01-02 13:51 | PC.NURSE ---
Addendum entered by Maria Dolores Vazquez RN 01/03/24 15:14: Called pt on 01/03/24- left a message for pt to bring Albuterol inhaler DOS. Also explained that she can take citalopram, control and venlafaxine if a morning med. Pt explained that her Propanolol is used PRN for headaches. Original Note: Report to the Outpatient Waiting Room, entrance under the green pavilion located off [facility], at time _0815__ on date _01/12/24__. Planned Procedure Time: _1015___. Time changes happen often and if your time is changed the preop area will call you the afternoon before. - You and your visitor will be asked to self-screen and do not enter if you have any COVID symptoms. - A mask is optional within the hospital at this time. Patients may have clear liquids (water, carbonated beverages, clear teas, apple juice) until 3 hours prior to surgery with a maximum of 20 ounces. - No food from midnight until time of surgery - Infants may have breast milk until 4 hours before surgery, formula 6 hours prior to surgery. - Children will be allowed to drink immediately following surgery. If applicable, please bring a bottle or sippy cup to assist with drinking. Juice, water, soda, and popsicles are readily available. For infants on formula, please bring formula the day of surgery. Pacifiers are allowed. Take the following medications with a SIP of water the morning of surgery: _None____ DO NOT STOP ANY OF YOUR OTHER PRESCRIPTION MEDICATIONS PRIOR TO SURGERY ?EXCEPT THE FOLLOWING Medications to discontinue per physician __Vitamins and supplements 3 days prior___ Date to take last dose Please no make-up, nail spanish, hairspray, perfume, deodorant, or body powder the day of surgery. No jewelry (including any body piercings) or valuables the day of surgery, leave them at home. Please take a shower or bath the night before, or the morning of, surgery with an antibacterial soap. Wear comfortable, loose fitting clothing. Children are encouraged to wear pajamas. - Jewelry must be removed prior to entering the operating room. Rings and piercings that are not removed may be cut off. - The hospital will not accept responsibility for valuables. - Please leave all valuables, including medications, at home the day of surgery. If you are going home after surgery, a licensed electric pile driver operator must drive you home. - NO public transportation without another adult if you receive anesthesia. - We recommend that an adult stay with you for 24 hours following discharge. - We also recommend that you do not drive, make important decision, drink alcoholic beverages, or take any drugs that were not prescribed by your health care provider for at least 24 hours after your discharge time. For Pediatric surgeries, we recommend two adults accompany the child home. Follow any additional instructions given to you from your surgeon. If you or anyone in your household have experienced Covid symptoms in the past week, please notify your surgeon or the nurse liaison at the phone number below for possible testing. Telephone instructions given to __Patient__and asked if any additional questions and then verbalized understanding. Patient advised to call surgeon office or pre surgery nurse liaison [phone] if any additional questions.
--- NOTE | 2024-01-11 17:33 | PM.IMHP ---
H&P: HPI History of Present Illness Date/Time: 01/11/24 17:33 Chief Complaint: nasal obstruction nasal congestion septal deviation turbinate hypertrophy Narrative: planned procedure Review of Systems Review of Systems: All systems reviewed & are unremarkable except as noted in HPI and below [facility] Past Medical History Medical History (Updated 01/11/24 @ 17:33 by Josiah Plunkett MD) Carpal tunnel syndrome History of gastroesophageal reflux (GERD) Surgical History Surgical History No pertinent past surgical history Family History Family History (Updated 11/01/23 @ 09:01 by Kortney Phelps CMA) Father No problems noted. Mother Diabetes mellitus Depression Cerebrovascular accident Multiple sclerosis Sibling Asthma Depression Heart disease Grandparent Diabetes mellitus Hypertension Cerebrovascular accident Lupus Grandparent Diabetes mellitus Hypertension Depression Social History Social History (Updated 11/01/23 @ 08:48 by Kotrney Phelps CMA) Smoking status: Never smoker Alcohol intake: current Alcohol use details: Monthly Substance use: never Substance use type: does not use Do You Feel Safe in your Home?: Yes Lack of Transportation: No Lack of Food: Never True Current Housing: I Have Housing Concerned About Future Housing: No Difficulty Paying Gas/Electric Bills: No Difficulty Paying for Meds: No Currently Unemployed: No Education: Bachelor's Degree Difficulty w/ Childcare or Family Care: No Living arrangements: with family Spiritual care concerns: No Meds Home Medications and Allergies Home Medications Medication Instructions Recorded Confirmed Type fluticasone propionate 50 1 spray intranasal BID #16 grams 11/01/21 01/02/24 Rx mcg/actuation nasal spray,suspension (Flonase Allergy Relief) albuterol sulfate 90 mcg/actuation 2 inh inhalation Q6H PRN SOB 11/01/23 01/02/24 History breath activated powder inhaler citalopram 20 mg tablet 20 mg PO DAILY 11/01/23 01/02/24 History cyclobenzaprine 10 mg tablet 10 mg PO TID 11/01/23 01/02/24 History ergocalciferol (vitamin D2) 50 mcg 50 mcg PO DAILY 11/01/23 01/02/24 History (2,000 unit) tablet famotidine 20 mg tablet 20 mg PO DAILY 11/01/23 01/02/24 History fexofenadine 180 mg tablet 180 mg PO DAILY 11/01/23 01/02/24 History (Gwen Hivadams) multivitamin 1 tablet PO DAILY 11/01/23 01/02/24 History norethin-ethinyl estradiol-iron 1 tablet PO DAILY 11/01/23 01/02/24 History 0.4 mg-35 mcg(21)/75 mg(7) chew tablet omeprazole 20 mg capsule,delayed 20 mg PO QPM 11/01/23 01/02/24 History release omeprazole 40 mg capsule,delayed 40 mg PO DAILY 11/01/23 01/02/24 History release propranolol 20 mg tablet 40 mg PO Q12H 11/01/23 01/02/24 History sumatriptan succinate 25 mg tablet 25 mg PO ONCE PRN headaches 11/01/23 01/02/24 History venlafaxine 75 mg tablet 75 mg PO DAILY 11/01/23 01/02/24 History Allergies Allergy/AdvReac Type Severity Reaction Status Date / Time metronidazole Allergy Severe Rash Verified 11/01/23 08:44 Sulfa (Sulfonamide Allergy Rash Verified 07/04/23 20:31 Antibiotics) Exam Narrative: septal deviation turbinate hypertrophy Assessment and Plan Assessment and plan (1) Nasal septal deviation: Code(s): J34.2 - Deviated nasal septum Status: Acute Assessment and Plan: plan or endoscopic assisted septoplasty inferior turbinate reduction with outfracture bilaterally risks discussed bleeding infection damage to surrounding structures septal perforation damage to structure of the clavicle by myself damage to any structure induction remains anesthesia including vocal cord paralysis need for further procedures blindness change in vision CSF leak brain brain damage failure to resolve symptoms need for further valve work (2) Hypertrophy of
[2024-01-12] VITALS (9 sets, daily range): BP systolic 105–132; BP diastolic 62–80; PULSE 77–103; RESP 16–22; TEMP 36.1–36.2; O2SAT 97–100
--- NOTE | 2024-01-12 07:18 | WPDHPUPDATE1 ---
History and Physical Update Update Date/Time: 01/12/24 07:18 History and Physical has been reviewed, including an updated exam of the patient. There are NO changes in the patient's condition. Risks, benefits, and alternatives have been discussed and questions answered. Patient agrees to proceed with procedure.
[2024-01-12] MEDS: ACETAMINOPHEN 500 MG TABLET 1000 MG PO (10:09)
[2024-01-12] MEDS: LACTATED RINGERS 1,000 ML 30 ML IV CONT ×2 (10:10→12:58)
--- NOTE | 2024-01-12 10:38 | WPDANESEPPF ---
Anes - Initial Pre Proc Eval Procedure: Operation Date: 01/12/24 11:15 Proposed Procedures p Bilateral Inferior Turbinate Reduction with Outfracture, - Josiah Plunkett MD s Transnasal Adenoidectomy, - Josiah Plunkett MD s Septoplasty - Josiah Plunkett MD Date/Time: 01/12/24 10:38 Surgeon: Josiah Plunkett MD Pre Op Diagnosis: turbinate hypertrophy, septal deviation Patient Data Age: 38 Gender: F Height: 1.57 m Weight: 112 kg Last Vital Signs Temp 97.2 F L 01/12/24 10:02 Pulse 77 01/12/24 10:02 Resp 18 01/12/24 10:02 BP 132/80 01/12/24 10:02 Pulse Ox 98 01/12/24 10:02 O2 Del Method Room Air 01/12/24 10:02 Allergies Allergy/AdvReac Type Severity Reaction Status Date / Time metronidazole Allergy Severe Rash Verified 01/12/24 10:08 Sulfa (Sulfonamide Allergy Rash Verified 01/12/24 10:08 Antibiotics) Home Medications Medication Instructions Recorded Confirmed Type fluticasone propionate 50 1 spray intranasal BID #16 grams 11/01/21 01/12/24 Rx mcg/actuation nasal spray,suspension (Flonase Allergy Relief) albuterol sulfate 90 mcg/actuation 2 inh inhalation Q6H PRN SOB 11/01/23 01/12/24 History breath activated powder inhaler citalopram 20 mg tablet 20 mg PO DAILY 11/01/23 01/12/24 History cyclobenzaprine 10 mg tablet 10 mg PO TID 11/01/23 01/12/24 History ergocalciferol (vitamin D2) 50 mcg 50 mcg PO DAILY 11/01/23 01/12/24 History (2,000 unit) tablet famotidine 20 mg tablet 20 mg PO DAILY 11/01/23 01/12/24 History fexofenadine 180 mg tablet 180 mg PO DAILY 11/01/23 01/12/24 History (Gwen Hives) multivitamin 1 tablet PO DAILY 11/01/23 01/12/24 History norethin-ethinyl estradiol-iron 1 tablet PO DAILY 11/01/23 01/12/24 History 0.4 mg-35 mcg(21)/75 mg(7) chew tablet omeprazole 20 mg capsule,delayed 20 mg PO QPM 11/01/23 01/12/24 History release omeprazole 40 mg capsule,delayed 40 mg PO DAILY 11/01/23 01/12/24 History release propranolol 20 mg tablet 40 mg PO Q12H 11/01/23 01/12/24 History sumatriptan succinate 25 mg tablet 25 mg PO ONCE PRN headaches 11/01/23 01/12/24 History venlafaxine 75 mg tablet 75 mg PO DAILY 11/01/23 01/12/24 History Patient hx anesthesia problems: none Family hx anesthesia problems: none Results Review: All pre-operative results and documents have been reviewed as part of the pre-operative evaluation. [facility] Past Medical History Medical History Carpal tunnel syndrome History of gastroesophageal reflux (GERD) Surgical History Surgical History No pertinent past surgical history Family History Family History Father No problems noted. Mother Diabetes mellitus Depression Cerebrovascular accident Multiple sclerosis Sibling Asthma Depression Heart disease Grandparent Diabetes mellitus Hypertension Cerebrovascular accident Lupus Grandparent Diabetes mellitus Hypertension Depression Social History Social History Smoking status: Never smoker Alcohol intake: current Alcohol use details: Monthly Substance use: never Substance use type: does not use Do You Feel Safe in your Home?: Yes Lack of Transportation: No Lack of Food: Never True Current Housing: I Have Housing Concerned About Future Housing: No Difficulty Paying Gas/Electric Bills: No Difficulty Paying for Meds: No Currently Unemployed: No Education: Bachelor's Degree Difficulty w/ Childcare or Family Care: No Living arrangements: with family Spiritual care concerns: No Anes - Eval Final PreProcedure Day of Procedure 01/12/24 10:38 Patient weight: morbidly obese Heart: regular rate and rhythm Lungs: clear to auscultation Airway: Mallampati scale and spec
[2024-01-12] MEDS: ceFAZolin 2 GM/D5W 50 ML 2 GM/50 ML BAG IVPB (10:58)
[2024-01-12] MEDS: OXYMETAZOLINE HCL 0.05% NAS 15 ML BTL (*BKC) 1 SPRAY NASAL (11:25)
[2024-01-12] MEDS: LIDO 1%/EPINEPHRINE 1:100,000 50 ML VIAL INFILTRATE (11:26)
--- NOTE | 2024-01-12 13:16 | P.OP_ITS ---
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 Septum moderately deviated the right scarred upfront led to some tearing on the left nasal septal flap. Turbinates very large reduced well. Middle tear right-sided a 2 tears left anterior Description of Procedure patient identified consent verified preop. Patient brought operating. Time- out performed. General anesthesia induced endotracheal tube secured. Patient prepped draped position procedure confirmed. Second time-out performed. Afrin- soaked pledgets placed for 5 minutes then removed. 0 degree endoscope utilized right septal deviation large turbinates total 15 cc injected bilateral nasal septum bilateral inferior turbinates left Aly incision made during elevation of the left nasal septal flap there were 2 tears. Left nasal septal flap elevated nicely osteotome utilized to cross over the septum right nasal septal flap elevated there was a tear in the mid septum the very nice thing is not of these tears oppose each other. Deviated septum removed with Krystyna forceps Benigno Kumar forceps and osteotome. Septum watched out FloSeal utilized excess FloSeal Aly incision closed with 2 interrupted 5 0 fast gut sutures. Stab incision made anterior portions inferior turbinates reduced submucosal plane using microdebrider 2.5 mm [place] blade. Schoolcraft elevator then utilized outfracture. Story tips cauterized with Bovie suction electrocautery. Adenoid pad examined I began to debulk this it was clear that this was a cyst is clear cystic fluid came cyst wall removed edges cauterized. Total blood loss 25 cc per bilateral passages irrigated had to the inferior turbinates filled with FloSeal packed out excess removed Saavedra splints placed bilaterally sutured anteriorly using 3-0 mattress suture. I performed all dictated portions of the procedure no complications care the patient back to Anesthesiology. Patient taken to PACU. Estimated Blood Loss 25 Drains No Packing No Pathology None sent Complications No immediate complications Condition Stable Disposition PACU [facility] Billing Surgery - Charge Forward: Surgery Billing
[2024-01-12] MEDS: oxyCODONE HCL (*CRX) 5 MG TAB IR PO (14:06)
== END 2024-01-12 14:50 | disposition home or self-care (01) ==
PROVIDERS: PCP Family Medicine; Visit Provider Otolaryngology
PROC: (CPT 30520; principal; 2024-01-12 11:15)
PROC: (CPT 30520; 2024-01-12 11:15)
PROC: (CPT 30520; 2024-01-12 11:15)
DX: J34.2 Deviated nasal septum (principal); J34.3 Hypertrophy of nasal turbinates; J39.2 Other diseases of pharynx; E66.01 Morbid (severe) obesity due to excess calories; Z68.42 Body mass index [BMI] 45.0-49.9, adult
CPT/HCPCS: 30520; 30140; A9270; J0690; J1100; J2250; J2405; J2704; J3010; J7050; J7120

== ENCOUNTER 2024-03-27 04:01 | Emergency (ER) | payer BC, SELFPAY ==
--- NOTE | ~2024-03-27 | CT_ITS ---
Non-contrast CT scan of the Abdomen and Pelvis Clinical indication: Left flank pain Technique: 2.5 mm axial scans were obtained through the abdomen and pelvis without intravenous or or al contrast. Dose reduction technique was used on this scan by utilizing automated exposure control a nd iterative reconstruction technique. The dose-length product (DLP) was 890.32 mGy-cm. COMPARISON: 06/05/2023 Findings: Images through the lung bases reveal no abnormalities. There is a 2.5 mm distal left ureteral stone, with minimal left hydroureteronephrosis. No other radio paque stones are identified. No right hydronephrosis. The liver, spleen, pancreas, gallbladder, and adrenals appear normal. There is no aortic aneurysm. There is no evidence of bowel obstruction. Small fat-containing umbilical hernia noted. Images through the pelvis were performed. There is no evidence of ascites or lymphadenopathy. Urinary bladder unremarkable. No pelvic mass seen. Impression: 2.5 mm distal left ureteral stone with minimal left hydroureteronephrosis. Reviewed, dictated and finalized at [facility]. Impression: 2.5 mm distal left ureteral stone with minimal left hydroureteronephrosis.
[2024-03-27 04:10] VITALS: BP 130/84; PULSE 74; RESP 15; TEMP 36.8; O2SAT 99
--- NOTE | 2024-03-27 04:27 | ED.FEMALEGU ---
HPI - Female Genitourinary General Chief complaint: Urogenital-Female Stated complaint: L flank pain, pain with urination Time Seen by Provider: 03/27/24 04:04 History of Present Illness HPI Narrative: Patient presents with pain with urination and left flank pain, has been ongoing for the last few days, feels like a kidney stone, she has history of kidney stones. Related Data Home Medications Medication Instructions Recorded Confirmed albuterol sulfate 90 mcg/actuation 2 inh inhalation Q6H PRN SOB 11/01/23 02/02/24 breath activated powder inhaler citalopram 20 mg tablet 20 mg PO DAILY 11/01/23 02/02/24 cyclobenzaprine 10 mg tablet 10 mg PO TID 11/01/23 02/02/24 ergocalciferol (vitamin D2) 50 mcg 50 mcg PO DAILY 11/01/23 02/02/24 (2,000 unit) tablet famotidine 20 mg tablet 20 mg PO DAILY 11/01/23 02/02/24 fexofenadine 180 mg tablet 180 mg PO DAILY 11/01/23 02/02/24 (Gwen Hives) multivitamin 1 tablet PO DAILY 11/01/23 02/02/24 norethin-ethinyl estradiol-iron 1 tablet PO DAILY 11/01/23 02/02/24 0.4 mg-35 mcg(21)/75 mg(7) chew tablet omeprazole 20 mg capsule,delayed 20 mg PO QPM 11/01/23 02/02/24 release omeprazole 40 mg capsule,delayed 40 mg PO DAILY 11/01/23 02/02/24 release propranolol 20 mg tablet 40 mg PO Q12H 11/01/23 02/02/24 sumatriptan succinate 25 mg tablet 25 mg PO ONCE PRN headaches 11/01/23 02/02/24 venlafaxine 75 mg tablet 75 mg PO DAILY 11/01/23 02/02/24 Allergies Allergy/AdvReac Type Severity Reaction Status Date / Time metronidazole Allergy Severe Rash Verified 02/02/24 14:49 Sulfa (Sulfonamide Allergy Rash Verified 02/02/24 14:49 Antibiotics) Review of Systems Review of Systems: All systems reviewed & are unremarkable except as noted in HPI and below PMFSH Past Medical History Medical History Carpal tunnel syndrome History of gastroesophageal reflux (GERD) Surgical History Surgical History No pertinent past surgical history Family History Family History Father No problems noted. Mother Diabetes mellitus Depression Cerebrovascular accident Multiple sclerosis Sibling Asthma Depression Heart disease Grandparent Diabetes mellitus Hypertension Cerebrovascular accident Lupus Grandparent Diabetes mellitus Hypertension Depression Social History Social History Smoking status: Never smoker Alcohol intake: current Alcohol use details: Monthly Substance use: never Substance use type: does not use Do You Feel Safe in your Home?: Yes Lack of Transportation: No Lack of Food: Never True Current Housing: I Have Housing Concerned About Future Housing: No Difficulty Paying Gas/Electric Bills: No Difficulty Paying for Meds: No Currently Unemployed: No Education: Bachelor's Degree Difficulty w/ Childcare or Family Care: No Living arrangements: with family Spiritual care concerns: No Exam Narrative: EXAMINATION OF ORGAN SYSTEMS/BODY AREAS: Constitutional: Vital signs per nursing GENERAL:[No acute distress, non-toxic appearing.] HEAD: Normal with no signs of head trauma. EYES: EOMI, conjunctiva normal ENT: Hearing grossly intact LUNGS: Nonlabored breathing. HEART: [Regular rate and rhythm] ABD: [Soft], [nontender to palpation] EXT: Normal range of motion SKIN: [No rashes or lesions.] NEURO: [Alert and oriented x 3. No gross focal sensory or strength deficits.] PSYCH: Normal affect Course Vital Signs Vital signs: Vital Signs Temperature 98.2 F 03/27/24 04:10 Pulse Rate 74 03/27/24 04:10 Respiratory Rate 15 03/27/24 04:10 Blood Pressure 130/84 03/27/24 04:10 Pulse Oximetry 99 03/27/24 04:10 Oxygen Delivery Room Air 03/27/24 04:10 Temperature 98.2 F 0
[2024-03-27 04:28] LABS: Basophils Percent Auto 0.3 % (0.2-1.2); Eosinophils Absolute Auto 0.1 K/mm3 (0-0.3); Hemoglobin 14.5 g/dL (12.0-15.0); Immature Granulocyte Absolute 0.07 K/mm3 (0.00-0.031); Immature Granulocyte Percent A 0.6 % (0-0.5); Lymphocytes Absolute Auto 4.93 K/mm3 (0.9-3.2); Lymphocytes Percent Auto 42.6 % (18.3-44.2); Mean Corpuscular HGB Conc 33.7 g/dl (32-36); Mean Corpuscular Hemoglobin 30.1 pg (26-34); Mean Corpuscular Volume 89.4 fl (80-100); Monocytes Percent Auto 8.4 % (2.6-8.5); Neutrophils Absolute Auto 5.4 K/mm3 (1.3-6.7); Neutrophils Percent Auto 47.1 % (45.5-73.1); Platelet Count Result 309 k/mm3 (150-375); Red Blood Count 4.81 M/mm3 (4.2-5.4); Red Cell Distribution Width 12.2 % (11.5-14.5); White Blood Count 11.6 K/mm3 (4.5-10.0)
[2024-03-27 04:40] LABS: Alanine Aminotransferase 22 U/L (6-35); Albumin Level 4.4 g/dL (3.5-5.1); Alkaline Phosphatase 87 U/L (38-126); Anion Gap 12 mmol/L (4-12); Aspartate Amino Transferase 26 U/L (14-36); Bilirubin,Total 0.7 mg/dL (0.2-1.3); Blood Urea Nitrogen 14 mg/dL (7-17); Calcium 9.3 mg/dL (8.4-10.2); Carbon Dioxide 26 mmol/L (22-30); Chloride 101 mmol/L (98-107); Estimated CRCL calculation 90 ml/min; Estimated Glomerular Filt Rate > 60; Glucose 120 mg/dL (65-110); Lipase 36 U/L (23-300); Potassium 4.2 mmol/L (3.4-5.0); Sodium 139 mmol/L (137-145)
[2024-03-27 04:42] LABS: Appearance Urine Cloudy (Clear); Bacteria Urine None Seen /hpf; Bilirubin Urine Negative (Negative); Blood Urine 2+ (Negative); Color Urine Yellow (Yellow); Glucose Urine UA Negative (Negative); Hyaline Casts Urine Present /lpf; Ketones Urine Trace mg/dL (Negative); Leukocyte Esterase Ur 1+ LEU/UL (Negative); Mucus Urine Present /lpf; Nitrate Urine Negative (Negative); Non Pathogenic Casts 0-2; Protein Urine Trace mg/dL (Negative); RBC Urine 51-100 /hpf (0-2); Specific Grav Ur 1.029 (1.001-1.035); Squamous Epithelial Cell Urine Occasional /hpf (Few); Urobilinogen Urine 0.2 mg/dL (<2.0); pH Urine 5.5 (5.0-9.0)
[2024-03-27 04:47] LABS: Add Urine Microscopic? YES
[2024-03-27] MEDS: MORPHINE SULFATE (*CRX) 2 MG/ML INJ IV PUSH (05:15)
[2024-03-27] MEDS: LACTATED RINGERS 1,000 ML 999 ML IV CONT (05:20)
[2024-03-27 05:43] VITALS: PULSE 73; RESP 15; O2SAT 98
[2024-03-27] MEDS: KETOROLAC 15 MG/ML VIAL (*BKC) IV PUSH (06:30)
== END 2024-03-27 06:34 | disposition home or self-care (01) ==
PROVIDERS: Emergency Provider Emergency Medicine; PCP Family Medicine
DX: N20.0 Calculus of kidney (principal)
CPT/HCPCS: 36415; 74176; 80053; 81001; 81025; 83690; 85025; 87086; 96361; 96374; 96375; 99284; J1885; J2270; J7120

== ENCOUNTER 2024-04-05 22:35 | Emergency (ER) | payer BC, SELFPAY ==
[2024-04-05 22:36] VITALS: BP 145/84; PULSE 78; RESP 20; TEMP 36.8; O2SAT 99
== END 2024-04-06 | disposition left against medical advice (07) ==
PROVIDERS: PCP Family Medicine
DX: G43.909 Migraine, unspecified, not intractable, without status migrainosus (principal)
CPT/HCPCS: 99199